=== PATIENT | female | born 1960 | race African-American/Black ===

== ENCOUNTER → 2018-11-17 16:48 | Emergency (ER) | payer MEDICARE, MEDICAID ==
--- NOTE | 2018-11-17 18:39 | ED ---
Throat Pain/Nasal Congestion - HPI Summary HPI Summary: This patient is a 58 year old F presenting to [facility] with a chief complaint of dental pain since the morning of 11/17/18. She reports she found a lump this morning, and felt a burning and throbbing sensation in her mouth. Her pain has slightly subsided as she previously felt as if she was going to pass out. Per triage, pt rates the pain 10/10 in severity. Pt has a PMHx of an abscess. - History of Current Complaint Chief Complaint: EDDentalPain Time Seen by Provider: 11/17/18 18:30 Hx Obtained From: Patient Onset/Duration: Sudden Onset, Lasting Hours, Still Present Severity: Severe - 10/10 Cough: None - Allergies/Home Medications Allergies/Adverse Reactions: Allergies Allergy/AdvReac Type Severity Reaction Status Date / Time Penicillins Allergy Unknown Verified 11/17/18 16:53 Reaction Details tetracycline Allergy See Comment Verified 11/17/18 16:53 PMH/Surg Hx/FS Hx/Imm Hx Sensory History: Denies: Hx Legally Blind EENT History: Denies: Hx Deafness Infectious Disease History: No Infectious Disease History: Denies: Traveled Outside the [place] in Last 30 Days - Social History Alcohol Use: None Hx Substance Use: No Substance Use Type: Reports: None Hx Tobacco Use: Yes Smoking Status (MU): Light Every Day Tobacco Smoker Review of Systems Negative: Fever Positive: Dental Pain All Other Systems Reviewed And Are Negative: Yes Physical Exam - Summary Physical Exam Summary: Appearance: The patient is well-nourished in no acute distress and in no acute pain. Skin: The skin is warm and dry and skin color reflects adequate perfusion. HEENT: The head is normocephalic and atraumatic. The pupils are equal and reactive. The conjunctivae are clear and without drainage. Nares are patent and without drainage. Mouth reveals moist mucous membranes and the throat is without erythema and exudate. The external ears are intact. The ear canals are patent and without drainage. The tympanic membranes are intact. Abscess in right upper molar area. Neck: The neck is supple with full range of motion and non-tender. There are no carotid bruits. There is no neck vein distemension. Respiratory: Chest is non-tender. Lungs are clear to auscultation and breath sounds are symmetrical and equal. Cardiovascular: Heart is regular rate and rhythm. There is no murmur or rub auscultated. There is no peripheral edema and pulses are symmetrical and equal. Abdomen: The abdomen is soft and non-tender. There are normal bowel sounds heard in all four quadrants and there is no organomegaly palpated. Musculoskeletal: There is no back tenderness noted. Extremities are non-tender with full range of motion. There is good capillary refill. There is no peripheral edema or calf tenderness elicited. Neurological: Patient is alert and oriented to person, place and time. The patient has symmetrical motor strength in all four extremities. Cranial nerves are grossly intact. Deep tendon reflexes are symmetrical and equal in all four extremities. Psychiatric: The patient has an appropriate affect and does not exhibit any anxiety or depression. Triage Information Reviewed: Yes Vital Signs On Initial Exam: Initial Vitals Temp Pulse Resp BP Pulse Ox 97.9 F 108 20 156/108 96 11/17/18 16:52 11/17/18 16:52 11/17/18 16:52 11/17/18 16:52 11/17/18 16:52 Vital Signs Reviewed: Yes Diagnostics - Vital Signs Vital Signs Temp Pulse Resp BP Pulse Ox 11/17/18 16:52 97.9 F 108 20 156/108 96 - Laboratory Lab Statement: Any lab studies that have been ordered have been reviewed, and results considered in the medical decision making process. EENT Course/Dx - Course Course Of Treatment: Ms. Aguilar comes in with a recurrence of her dental abscess. She was nontoxic in appearance stable vitals. I gave her antibiotics and recommended follow-up with the dentist. - Diagnoses Provider Diagnoses: Toothache Discharge - Sign-Out/Discharge Documenting (check all that apply): Patient Departure - Discharge Patient Received Moderate/Deep Sedation with Procedure: No - Discharge Plan Condition: Stable Disposition: HOME Prescriptions: Clindamycin Cap(NF) [Clindamycin Cap 300 mg Cap(NF)] 300 mg PO TID #30 cap Patient Education Materials: Toothache (ED) Referrals: [facility] [Outside] - 3 Days Additional Instructions: Follow up with primary care provider within 2-3 days. RETURN TO THE EMERGENCY DEPARTMENT FOR CHANGING OR WORSENING SYMPTOMS. - Billing Disposition and Condition Condition: STABLE Disposition: Home - Attestation Statements Document Initiated by Scribe: Yes Documenting Scribe: Gwen Jonathan Provider For Whom Scribe is Documenting (Include Credential): Dr. Gerry Stacy MD Scribe Attestation: IGwen, scribed for Dr. Gerry Stacy MD on 11/17/18 at 2024. Scribe Documentation Reviewed: Yes Provider Attestation: The documentation as recorded by the Gwen reyes accurately reflects the service I personally performed and the decisions made by me, Dr. Gerry Stacy MD Status of Scribe Document: Viewed
[2018-11-17 18:53] VITALS: BP 140/103
== END | disposition home or self-care (01) ==
LOC: ED 16:48
DX: K08.89 Other specified disorders of teeth and supporting structures (principal); F17.210 Nicotine dependence, cigarettes, uncomplicated; Z88.1 Allergy status to other antibiotic agents; Z88.0 Allergy status to penicillin
CPT/HCPCS: 99282

== ENCOUNTER → 2018-12-05 18:53 | Emergency (ER) | payer MEDICARE, MEDICAID ==
[~2018-12-05 18:53] MED LIST: Albuterol HFA INHALER* 8 gm MDI INH ONE
--- NOTE | 2018-12-05 21:12 | ED ---
Respiratory - HPI Summary HPI Summary: 58 yo female presents to [facility] ED requesting a refill on her albuterol inhaler. She tells me that she moved from [place] about 4 months ago and has not established with a new PCP here. She has been out of her albuterol inhaler for the last 6 weeks. Over the last week has been having wheezing and feeling SOB. She is still smoking and feels worse when she smokes. She denies fever, chills, sinus symptoms, sore throat, chest pain, palpitations, abdominal pain, n/v. - History of Current Complaint Chief Complaint: EDPrescriptionNeeded Stated Complaint: DIFFICULTY BREATHING PER PT Time Seen by Provider: 12/05/18 21:12 Hx Obtained From: Patient Pain Intensity: 0 Character: Wheezing - Allergy/Home Medications Allergies/Adverse Reactions: Allergies Allergy/AdvReac Type Severity Reaction Status Date / Time Penicillins Allergy Unknown Verified 12/05/18 18:58 Reaction Details tetracycline Allergy See Comment Verified 12/05/18 18:58 PMH/Surg Hx/FS Hx/Imm Hx Endocrine/Hematology History: Denies: Hx Diabetes Respiratory History: Reports: Hx Asthma Sensory History: Denies: Hx Legally Blind, Hx Deafness Opthamlomology History: Denies: Hx Legally Blind Neurological History: Denies: Hx CVA Psychiatric History: Reports: Hx Anxiety, Hx Depression, Hx Panic Disorder - Surgical History Surgical History: Unable to Obtain/Confirm - Immunization History Immunizations Up to Date: Yes Infectious Disease History: No Infectious Disease History: Denies: Traveled Outside the [place] in Last 30 Days - Family History Known Family History: Positive: Respiratory Disease - Social History Lives: With Family Alcohol Use: None Hx Substance Use: No Substance Use Type: Reports: None Hx Tobacco Use: Yes Smoking Status (MU): Light Every Day Tobacco Smoker Review of Systems Constitutional: Negative Eyes: Negative ENT: Negative Cardiovascular: Negative Positive: Shortness Of Breath, Cough Gastrointestinal: Negative Genitourinary: Negative Neurological: Negative Psychological: Normal All Other Systems Reviewed And Are Negative: Yes Physical Exam - Summary Physical Exam Summary: GENERAL: NAD. WDWN. No pain distress. Talking in full sentences without SOB SKIN: No rashes, sores, or open wounds. HEENT: Head: AT/NC Eyes: PERRLA. EOM intact. Conjunctiva clear without inflammation or discharge. Ears: Hearing grossly normal. TMs intact, no bulging, erythema, or edema. Nose: Nasal mucosa pink and moist. NTTP maxillary and frontal sinus. Throat: Posterior oropharynx without exudates, erythema, or tonsillar enlargement. Uvula midline. NECK: Supple. Nontender. No lymphadenopathy. CHEST: Mild wheezing throughout. No accessory muscle use. Breathing comfortably and in no distress. CV: RRR. Without m/r/g. Pulses intact. Brisk cap refill. NEURO: Alert. PSYCH: Age appropriate behavior. Triage Information Reviewed: Yes Vital Signs On Initial Exam: Initial Vitals Temp Pulse Resp BP Pulse Ox 98.3 F 100 20 168/100 99 12/05/18 18:55 12/05/18 18:55 12/05/18 18:55 12/05/18 18:55 12/05/18 18:55 Vital Signs (72 hours) 12/05/18 12/05/18 12/05/18 18:55 20:52 22:19 Temperature 98.3 F 98.2 F 99.0 F Pulse Rate 100 103 95 Respiratory 20 20 18 Rate Blood Pressure 168/100 128/98 150/95 (mmHg) O2 Sat by Pulse 99 96 98 Oximetry Vital Signs Reviewed: Yes Diagnostics - Vital Signs Vital Signs Temp Pulse Resp BP Pulse Ox 12/05/18 20:52 98.2 F 103 20 128/98 96 12/05/18 18:55 98.3 F 100 20 168/100 99 - Laboratory Lab Statement: Any lab studies that have been ordered have been reviewed, and results considered in the medical decision making process. Disposition - Course Course Of Treatment: CXR: wet read negative for PNA. Suspect asthma. Educated and encouraged cutting back smoking. Will rx for an albuterol inhaler and provide her with the [facility] referral center to establish with a PCP. - Diagnoses Provider Diagnoses: Asthma Discharge - Sign-Out/Discharge Documenting (check all that apply): Patient Departure Patient Received Moderate/Deep Sedation with Procedure: No - Discharge Plan Condition: Stable Disposition: HOME Prescriptions: Albuterol HFA INHALER* [Ventolin HFA Inhaler*] 1 puff INH Q6H PRN #1 mdi PRN Reason: Sob/Wheezing Patient Education Materials: Asthma (DC) Referrals: No Primary Care Phys,NOPCP [Primary Care Provider] - [facility] PHYSICIAN REFERRAL [Outside] - As Soon As Possible Additional Instructions: If you develop a fever, shortness of breath, chest pain, new or worsening symptoms - please call your PCP or go to the ED immediately. Your blood pressure was high at todays visit. Please see your primary provider within 4 weeks for recheck and re-evaluation. Please call the physician referral number below to schedule an appointment with a primary doctor within 1 week for a recheck and further medication management - Billing Disposition and Condition Condition: STABLE Disposition: Home
[2018-12-05 22:23] VITALS: BP 150/95
== END | disposition home or self-care (01) ==
LOC: ED 18:53
DX: J45.909 Unspecified asthma, uncomplicated (principal); F17.210 Nicotine dependence, cigarettes, uncomplicated; Z88.1 Allergy status to other antibiotic agents; Z88.0 Allergy status to penicillin
CPT/HCPCS: 71046; 93005; 99282; A9270-GY

== ENCOUNTER 2019-01-16 21:17 | Emergency (ER) | payer MEDICARE, MEDICAID ==
--- NOTE | 2019-01-16 21:39 | ED ---
Palpitations / Dysrhythmia - HPI Summary HPI Summary: The patient is a 58 y/o F presenting to [facility] with a chief complaint of sudden onset fast palpitations for the last 30 minutes. She reports that she was at dinner at a restaurant while eating nachos when she felt her heart beating faster than normal. She denies any CP, SOB, or syncope. She notes that she is borderline for HTN but has not seen a PCP yet. The palpitations are still present but are much milder at 0/10 in severity than at onset. PMHx: asthma, anxiety, depression, panic disorder. Current every day smoker, no EtOH, no substance use. Medications and allergies reviewed. - History of Current Complaint Time Seen by Provider: 01/16/19 21:33 Hx Obtained From: Patient Onset/Duration: Sudden Onset, Lasting Minutes - lsat 30 minutes, Still Present Severity Initially: Moderate Severity Currently: Mild Character: Fast Aggravating: Other - eating nachos Alleviating: Nothing - Allergy/Home Medications Allergies/Adverse Reactions: Allergies Allergy/AdvReac Type Severity Reaction Status Date / Time Penicillins Allergy Unknown Verified 12/05/18 18:58 Reaction Details tetracycline Allergy See Comment Verified 12/05/18 18:58 PMH/Surg Hx/FS Hx/Imm Hx Endocrine/Hematology History: Denies: Hx Diabetes Cardiovascular History: Reports: Hx Hypertension - borderline Respiratory History: Reports: Hx Asthma Sensory History: Denies: Hx Legally Blind, Hx Deafness Opthamlomology History: Denies: Hx Legally Blind Neurological History: Denies: Hx CVA Psychiatric History: Reports: Hx Anxiety, Hx Depression, Hx Panic Disorder - Surgical History Surgical History: None Surgery Procedure, Year, and Place: none Infectious Disease History: No Infectious Disease History: Denies: Traveled Outside the [place] in Last 30 Days - Family History Known Family History: Positive: Respiratory Disease - Social History Alcohol Use: None Hx Substance Use: No Substance Use Type: Reports: None Hx Tobacco Use: Yes Smoking Status (MU): Light Every Day Tobacco Smoker Review of Systems Positive: Palpitations - fast. Negative: Chest Pain Negative: Shortness Of Breath All Other Systems Reviewed And Are Negative: Yes Physical Exam - Summary Physical Exam Summary: Appearance: Well-appearing, Well-nourished, lying in bed comfortably Skin: Warm, dry, no obvious rash Eyes: sclera anicteric, no conjunctival pallor ENT: mucous membranes moist, pharynx appears normal Neck: Supple, nontender Respiratory: Clear to auscultation, no signs of respiratory distress Cardiovascular: Normal S1, S2. No murmurs. Normal distal pulses in tibial and radial bilaterally. Abdomen: Soft, nontender, normal active bowel sounds present Musculoskeletal: Normal, Strength/ROM Intact Neurological: A&Ox3, awake and alert, mentation is normal, speech is fluent and appropriate Psychiatric: affect is normal, does not appear anxious or depressed Triage Information Reviewed: Yes Vital Signs Reviewed: Yes Diagnostics - Laboratory Lab Statement: Any lab studies that have been ordered have been reviewed, and results considered in the medical decision making process. - EKG 2127 Cardiac Rate: Tachycardia - 105 bpm EKG Rhythm: Sinus Tachycardia Summary of EKG Findings: Sinus tachycardia at 105 bpm, P waves, QRS complex, and T waves are within normal limits, T waves and intervals are normal, no ischemic changes. This is a normal EKG. Re-Evaluation - Re-Evaluation First Eval Re-Evaluation Time: 21:42 Comment: We discussed discharge plan. Course/Dx - Course Course Of Treatment: Patient is a 58 y/o F with cc of sudden onset fast palpitations after eating nachos about 30 minutes [facility] with symptoms still present but milder. Denies any CP, SOB, or syncope. Upon physical exam, the patient exhibits no acute abnormalities. EKG at 2127 reveals sinus tachycardia at 105 bpm but otherwise is a normal EKG. I do not suspect a need for additional workup at this time since there are no other symptoms associated with the palpitations she was experiencing. She is given a referral for [facility] to further investigate possible dx of hypertension. She understands and agrees with this plan. - Diagnoses Provider Diagnoses: Palpitations Discharge ED - Sign-Out/Discharge Documenting (check all that apply): Patient Departure - Patient will be discharged home. Patient Received Moderate/Deep Sedation with Procedure: No - Discharge Plan Condition: Good Disposition: HOME Patient Education Materials: Heart Palpitations (DC) Referrals: [facility] [Outside] - 3 Days Additional Instructions: We have given you a referral for finding a primary care provider that you can follow up with. Return to the emergency department for any new or worsening symptoms. - Billing Disposition and Condition Condition: GOOD Disposition: Home - Attestation Statements Document Initiated by Scribe: Yes Documenting Scribe: Kristel Hernandez Provider For Whom Jackelyn is Documenting (Include Credential): Dr. Gerry Garber MD Scribe Attestation: I, ofelia Blacked for Dr. Gerry Garber MD on 01/17/19 at 0532. Scribe Documentation Reviewed: Yes Provider Attestation: The documentation as recorded by the Kristel reyes accurately reflects the service I personally performed and the decisions made by me, Dr. Gerry Garber MD Status of Scribe Document: Viewed
[2019-01-16 21:46] VITALS: BP 164/111
== END 2019-01-16 21:46 | disposition home or self-care (01) ==
LOC: ED 21:17
DX: R00.2 Palpitations (principal); R00.0 Tachycardia, unspecified; Z88.1 Allergy status to other antibiotic agents; Z88.0 Allergy status to penicillin; F17.200 Nicotine dependence, unspecified, uncomplicated
CPT/HCPCS: 93005; 99281